=== PATIENT | male | born 1955 | race Hispanic/Latino ===

== ENCOUNTER → 2018-07-31 | Day surgery (SDC) | payer OTHER ==
[~2018-07-31] MED LIST: BENEFIBER240 GM PO; BILBERRY100 MG PO; CENTRUM SILVER1 EAC3 PO; CHROMIUM400 MCG PO; CRANBERRY300 MG PO; CRANBERRY400 MG PO; FENTANYL CITRATE/PF 100MCG/2 ML INJ ONE; FISH OIL 1,2001 EAC1 PO; FISH OIL 1,4001 EACH PO; FISH OIL PO; GARLIC1000 MG PO; GLIMEPIRIDE1 MG PO; GLIMEPIRIDE2 MG PO; GLUCOSAMINE 1,1 EACH PO; GLUCOSAMINE H1500 MG PO; HYOSCYAMINE SULFATE 0.5 MG/ML INJ ONE; JANUMET 50-1,01 EACH PO; JANUMET 50-5001 EACH PO; JANUVIA50 MG PO; JOINT HEALTH PO; KRILL OIL500 MG PO; LISINOPRIL10 MG PO; MAGNESIUM OXID400 MG PO; METAMUCIL PO; MIDAZOLAM HCL 2 MG/2 ML VIAL ONE; MULTIVITAMIN PO; NIACIN500 M2 PO; OMEGA 3 PO; OMEGA-3 KRILL1 EACH PO; POTASSIUM PO; PROPOFOL IV EMULSION 10 MG/ML 50 ML VIAL ONE; VIT B12 PO; VIT E PO; VITAMIN E PO; VITAMIN E400 UNI2 PO
--- NOTE | 2018-07-31 07:05 | NUR ---
SPIRITUAL CARE - Pre-Surgery Assessment: Pt in bed. Pt's at bedside. Pt reported supportive attention from family and friends. Intervention: I provided pastoral presence, hospitality, sympathetic listening, and prayer. I acquainted pt with availability of custody officer while hospitalized. Outcome: Pt expressed appreciation for visit. No need for follow up indicated at this time. GRANT HUTCHISON [employer] Clerk Spiritual Care Department O: [phone] Pager: [phone] ([phone] number calling from)
[2018-07-31 09:20] VITALS: BP 131/92
--- NOTE | 2018-07-31 10:55 | Operative Report ---
DATE OF PROCEDURE: July 31, 2018 REFERRING PHYSICIAN: Dr. Nabeel Martinez. PROCEDURE PERFORMED: Colonoscopy and polypectomy. INDICATIONS FOR COLONOSCOPY: Surveillance colonoscopy. Personal history of colon polyps. MEDICATION: Patient was done under MAC. Please see anesthesiologist's note. PROCEDURE: With the patient in the left lateral decubitus position, the flexible fiberoptic Olympus colonoscope was inserted into the rectum with ease and advanced all the way to the cecum. It was then withdrawn slowly, and other than for diverticular disease the ascending and the transverse appeared to be within normal limits. One polyp was hot biopsied from the descending. One polyp was hot biopsied from the sigmoid colon. Diverticular disease was also noted to involve the descending and the sigmoid. The rectum appeared to be within normal limits. The scope was then retroflexed into the distal rectum and moderate-sized internal hemorrhoids were noted, none of which was actively bleeding. The scope was then straightened out. It was subsequently withdrawn. Patient tolerated procedure well. IMPRESSION: 1. Diverticulosis. 2. Descending colon polyp hot biopsied. 3. Sigmoid colon polyp hot biopsied. 4. Internal hemorrhoids, none actively bleeding. PLAN: Follow up histology. Initiate high-fiber low-fat diet. Initiate high-fiber supplement. Patient might benefit from a followup colonoscopy in 3 to 5 years. Job#: [id number] EV cc:NABEEL MARTINEZ DO
== END | disposition home or self-care (01) ==
LOC: OR 05:47
PROVIDERS: ATTEND Internal Medicine Gastroenterology
DX: Z12.11 Encounter for screening for malignant neoplasm of colon (principal); Z86.010 Personal history of colon polyps; Z88.0 Allergy status to penicillin; E11.9 Type 2 diabetes mellitus without complications; Z79.84 Long term (current) use of oral hypoglycemic drugs; I10 Essential (primary) hypertension; K57.30 Diverticulosis of large intestine without perforation or abscess without bleeding; K63.5 Polyp of colon; K64.8 Other hemorrhoids
CPT/HCPCS: 36415; 45384; 82948; 93005; J1980; J2250; 45378